=== PATIENT | female | born 1970 | race Two or more races ===

== ENCOUNTER 2019-03-12 09:04 | Emergency (ER) | payer BC ==
[~2019-03-12] VITALS: Ht 157.5 cm; Wt 76.7 kg
[~2019-03-12 09:04] MED LIST: ACET-141 PO; CEPH-443 PO; IBUP-1542 PO
[2019-03-12 09:10] VITALS: Ht 157.5 cm; Wt 76.7 kg
[2019-03-12] MEDS ORDERED: ONDANSETRON 4 MG INJ IV STA (10:59)
[2019-03-12] MEDS ORDERED: SOD CHLORIDE 0.9% 1,000 ML IV STA (10:59)
[2019-03-12] MEDS ORDERED: LACTATED RINGER'S 1,000 ML IV STA (10:59)
[2019-03-12] MEDS ORDERED: morphine 4 MG/ML VIAL IV STA (10:59)
[2019-03-12] MEDS ORDERED: CEFTRIAXONE 1 GM/50 ML (PMX) 50 ML IVPB ONE (11:00)
[2019-03-12] MEDS ORDERED: IBUPROFEN 600 MG TAB PO ONE (11:00)
[2019-03-12 14:20] VITALS: BP 119/79; PULSE 90; RESP 16
== END 2019-03-12 14:20 | disposition home or self-care (01) ==
LOC: E/R 09:04
DX: N39.0 Urinary tract infection, site not specified (principal); R19.7 Diarrhea, unspecified; R19.00 Intra-abdominal and pelvic swelling, mass and lump, unspecified site
CPT/HCPCS: 74176; 80053; 81001; 81025; 83690; 85025; 87040; 87086; 96365; 96375; J0696; J2270; J2405; J7030; J7120; Z7502; Z7610